=== PATIENT | male | born 1975 | race Two or more races ===

== ENCOUNTER 2019-08-31 00:05 | Inpatient (IN) | payer OTHER ==
[~2019-08-31] VITALS: Ht 182.9 cm; Wt 113.5 kg
[2019-08-31 03:05] LABS: Basophils # (auto) 0 10 ^3/uL (0-0.2); Basophils % (auto) 0.9 % (0.0-2.0); Eosinophils # (auto) 0.1 10 ^3/uL (0-0.8); Eosinophils % (auto) 1.9 % (0.0-7.0); Hematocrit 42.3 % (41.0-53.0); Hemoglobin 15.5 g/dL (13.5-17.5); Lymphocytes # (auto) 2.3 10 ^3/uL (0.4-5.4); Mean Corpuscular Hemoglobin 31.4 pg (28.0-32.0); Mean Corpuscular Hgb Conc. 36.7 g/dL (32.0-36.0); Mean Corpuscular Volume 85.6 fL (80.0-100.0); Monocytes # (auto) 0.7 10 ^3/uL (0-1.3); Monocytes % (auto) 14.4 % (0.0-12.0); Neutrophils % (auto) 38.8 % (37.0-80.0); Nucleated Red Blood Cells % 0.2 %; Platelet Count (auto) 231 10^3/uL (140-450); Red Blood Cells 4.95 10^6/uL (4.5-5.90); Red Cell Distribution Width 12.9 % (11.8-14.3); White Blood Cell 5.1 10^3/uL (4.4-10.8)
[2019-08-31 03:11] LABS: INR 1.05 (0.9-1.15); Partial Thromboplastin Time 29.4 sec (23.64-32.05)
[2019-08-31 03:18] LABS: Anion Gap 8 (5-15); Blood Urea Nitrogen 23 mg/dL (7-18); Calcium 8.4 mg/dL (8.5-10.1); Carbon Dioxide 22 mmol/L (21-32); Chloride 107 mmol/L (98-107); Glucose 88 mg/dL (74-106); Magnesium 2.2 mg/dL (1.6-2.6); Potassium 3.6 mmol/L (3.5-5.1); Sodium 137 mmol/L (136-145)
[2019-08-31 03:20] LABS: BUN/Creatinine Ratio 20.9; GFR African American 94 mL/min; GFR Non-African American 78 mL/min
[2019-08-31 03:25] LABS: Alanine Aminotransferase 65 U/L (16-61); Alkaline Phosphatase 94 U/L (45-117); Aspartate Aminotransferase 30 U/L (15-37); Bilirubin, Total 0.6 mg/dL (0.2-1.0); Total Protein 7.8 g/dL (6.4-8.2)
[2019-08-31] MEDS ORDERED: ALBUTEROL SULF 2.5 MG/0.5ML(0.5%) NEB SOLN NEB ONE (06:00)
[2019-08-31] MEDS ORDERED: NITROGLYCERIN 0.4 MG SL TAB SL PRN (06:00)
[2019-08-31] MEDS ORDERED: MORPHINE SULF INJ 2 MG/ML SYRINGE 1ML IV PRN (06:00)
--- NOTE | 2019-08-31 09:10 | NUR ---
Telemetry admit from ER YLOI BONNER admitted to Telemetry unit after SBAR received. Patient oriented to Tania Kwong, primary RN, unit, room, bed, and unit policies regarding patient care and visiting hours. Patient weighed by bedscale and encouraged to call if they need something. All questions and concerns addressed, patient verbalized understanding. Note: [facility] GUARDS WITH PATIENT
[2019-08-31] MEDS ORDERED: AZITHROMYCIN 250 MG TAB PO SCH (10:00)
[2019-08-31 10:33] VITALS: BP 128/64
[2019-08-31] MEDS: cefTRIAXone 1GM/50ML D5W 50 ML IV SCH (11:28)
[2019-08-31 13:00] VITALS: BP 115/69
--- NOTE | 2019-08-31 13:32 | NUR ---
DR. YEPEZ CALLED AND ORDERS GIVEN TO START COVID-19 SET. ORDERS PLACED.
[2019-08-31] MEDS ORDERED: TEMAZEPAM 15 MG CAP PO PRN (13:45)
[2019-08-31] MEDS ORDERED: ACETAMINOPHEN 500 MG TAB PO PRN (13:45)
[2019-08-31] MEDS ORDERED: HYDROcodone-ACET 5/325MG TAB PO PRN (13:45)
[2019-08-31] MEDS ORDERED: PANTOPRAZOLE 40 MG TAB PO ONE (13:45)
[2019-08-31] MEDS: ALBUTEROL SULF HFA 90MCG INH 200DOSE IN SCH ×2 (16:02→21:53)
[2019-08-31 16:42] VITALS: BP 133/83
--- NOTE | 2019-08-31 19:45 | NUR ---
PATIENT IS AN INMATE WITH TWO GUARDS OUTSIDE ROOM. HE IS HANDCUFFED VIA RIGHT WRIST TO BED. PATIENT IS AO X4 AND STATES NO CURRENT COMPLAINTS OF SHORTNESS OF BREATH ON ROOM AIR. BED IS LOCKED IN LOWEST POSITION WITH SIDE RAILS UP X2. WILL CONTINUE TO MONITOR.
[2019-08-31 21:15] VITALS: BP 118/69
[2019-08-31] MEDS: DOXYCYCLINE 100 MG TAB/CAP PO SCH (21:53)
[2019-08-31] MEDS: PANTOPRAZOLE 40 MG TAB PO SCH (21:53)
--- NOTE | 2019-08-31 21:53 | NUR ---
Respiratory note: SCHEDULED MDI TREATMENT WAS GIVEN BY RN AT 2153.
[2019-09-01 03:54] VITALS: BP 148/69
[2019-09-01 05:00] VITALS: BP 100/74
[2019-09-01] MEDS: ALBUTEROL SULF HFA 90MCG INH 200DOSE IN SCH ×4 (05:42→21:55)
[2019-09-01 06:07] LABS: Basophils # (auto) 0.1 10 ^3/uL (0-0.2); Eosinophils # (auto) 0.1 10 ^3/uL (0-0.8); Eosinophils % (auto) 2.5 % (0.0-7.0); Hematocrit 41.3 % (41.0-53.0); Hemoglobin 14.4 g/dL (13.5-17.5); Lymphocytes # (auto) 2.4 10 ^3/uL (0.4-5.4); Lymphocytes % (auto) 43.5 % (10.0-50.0); Mean Corpuscular Volume 88.6 fL (80.0-100.0); Monocytes # (auto) 0.7 10 ^3/uL (0-1.3); Monocytes % (auto) 12.9 % (0.0-12.0); Neutrophils # (auto) 2.2 10 ^3/uL (1.6-8.6); Neutrophils % (auto) 40.1 % (37.0-80.0); Nucleated Red Blood Cells % 0.1 %; Platelet Count (auto) 197 10^3/uL (140-450); Red Blood Cells 4.66 10^6/uL (4.5-5.90); Red Cell Distribution Width 13.3 % (11.8-14.3); White Blood Cell 5.4 10^3/uL (4.4-10.8)
[2019-09-01 06:32] LABS: Calcium 8.3 mg/dL (8.5-10.1); Potassium 3.8 mmol/L (3.5-5.1)
[2019-09-01 06:37] LABS: Albumin 3.6 g/dL (3.4-5.0); BUN/Creatinine Ratio 21.4; Bilirubin, Total 0.4 mg/dL (0.2-1.0); Total Protein 7.1 g/dL (6.4-8.2)
[2019-09-01] MEDS: ASCORBIC ACID 1,000 MG TAB PO SCH (09:50)
[2019-09-01] MEDS: ZINC SULFATE 220mg CAP or TAB PO SCH (09:50)
[2019-09-01] MEDS: PANTOPRAZOLE 40 MG TAB PO SCH ×2 (09:50→21:53)
[2019-09-01] MEDS: cefTRIAXone 1GM/50ML D5W 50 ML IV SCH (09:50)
[2019-09-01] MEDS: DOXYCYCLINE 100 MG TAB/CAP PO SCH ×2 (09:50→21:53)
[2019-09-01] MEDS: ENOXAPARIN SOD 40 MG/0.4 ML SYRINGE SC SCH (09:51)
[2019-09-01] MEDS: CHOLECALCIFEROL (VITD3) 1,000IU=25mCg TAB PO SCH (09:51)
[2019-09-01 12:30] VITALS: BP 111/73
[2019-09-01 16:36] VITALS: BP 111/66
[2019-09-01] MEDS: LACTULOSE 20Gm/30ML SOLN PO SCH ×3 (17:10→23:58)
--- NOTE | 2019-09-01 19:25 | NUR ---
Opening Shift Note Assumed care of patient, awake and alert, AOx4. No S/S of distress. Some SOB with activity. Patient laying in bed supine w/ HOB at 40 degrees. Patient complains of back pain, given pain medication as prescribed. Instructed on POC and to call for assist PRN, will continue to monitor for changes Q1hr and PRN.
--- NOTE | 2019-09-01 19:25 | NUR ---
Note Correction: Patient did NOT have back pain. Patient was NOT given pain medication. NO pain at this time.
[2019-09-01 22:00] VITALS: BP 124/76
[2019-09-02 05:00] VITALS: BP 112/63
[2019-09-02] MEDS: LACTULOSE 20Gm/30ML SOLN PO SCH ×3 (06:00→18:00)
[2019-09-02 06:49] LABS: CRP High Sensitivity 0.08 mg/dL (< 0.3)
--- NOTE | 2019-09-02 07:30 | NUR ---
Opening Shift Note Assumed care of patient, awake and alert. No S/S of distress/SOB or pain. Instructed on POC and to call for assist PRN, will continue to monitor for changes Q1hr and PRN. Fall precautions in place per safety protocol.
[2019-09-02 08:00] VITALS: BP 111/71
[2019-09-02 09:18] VITALS: BP 111/71
[2019-09-02] MEDS: PANTOPRAZOLE 40 MG TAB PO SCH ×2 (10:38→22:42)
[2019-09-02] MEDS: ASCORBIC ACID 1,000 MG TAB PO SCH (10:38)
[2019-09-02] MEDS: DOXYCYCLINE 100 MG TAB/CAP PO SCH ×2 (10:38→22:42)
[2019-09-02] MEDS: CHOLECALCIFEROL (VITD3) 1,000IU=25mCg TAB PO SCH (10:38)
[2019-09-02] MEDS: cefTRIAXone 1GM/50ML D5W 50 ML IV SCH (10:38)
[2019-09-02] MEDS: ZINC SULFATE 220mg CAP or TAB PO SCH (10:39)
[2019-09-02] MEDS: ENOXAPARIN SOD 40 MG/0.4 ML SYRINGE SC SCH (10:39)
[2019-09-02 10:41] LABS: Hepatitis A Ab IgM Negative
[2019-09-02 10:42] LABS: Hepatitis B Core IgM Negative; Hepatitis B Surface Antigen Negative (Negative)
[2019-09-02 11:00] LABS: Hepatitis C Antibody Positive (Negative)
--- NOTE | 2019-09-02 11:05 | NUR ---
LAB Patient test positive for hepatitis C antibodies, will make MD aware.
--- NOTE | 2019-09-02 11:30 | NUR ---
Reach Truck Operator MD Hercules at bedside, aware of patient status. Per MD Hercules, patient is cleared from his stand point. Will cont to monitor patient.
--- NOTE | 2019-09-02 12:49 | NUR ---
Hospitalist MD Wood at bedside, aware of patient status, including positive hepatitis c antibodies and patient being cleared by pulmonology standpoint. Per MD Anguiano cont to monitor patient. Will cont to monitor patient.
[2019-09-02 13:00] VITALS: BP 113/66
[2019-09-02] MEDS: ALBUTEROL SULF HFA 90MCG INH 200DOSE IN SCH ×2 (14:00→21:22)
[2019-09-02 16:54] VITALS: BP 102/59
--- NOTE | 2019-09-02 19:15 | NUR ---
Opening Shift Note Assumed care of patient, awake and alert. No S/S of distress/SOB or pain. Safety measures in place bed in lowest position, side rails up x2, and call light within reach. Instructed on POC and to call for assist PRN, will continue to monitor for changes Q1hr and PRN.
--- NOTE | 2019-09-02 21:22 | NUR ---
MDI ADMINISTERED WITH HOLDING CHAMBER ATTACHMENT. SPO2 96% ON RA. WILL CONTINUE WITH NEXT SCHEDULED TX.
[2019-09-03 02:22] VITALS: BP 124/68
[2019-09-03 05:51] VITALS: BP 108/60
[2019-09-03] MEDS: LACTULOSE 20Gm/30ML SOLN PO SCH ×4 (06:00→17:59)
[2019-09-03] MEDS: ALBUTEROL SULF HFA 90MCG INH 200DOSE IN SCH ×3 (06:29→22:14)
--- NOTE | 2019-09-03 07:20 | NUR ---
OPENING NOTE ASSUMED CARE OF PATIENT. PATIENT ALERT AND ORIENTED. NO S/S OF SOB/DISTRESS NOTED. BED SET TO LOWEST POSITION/LOCKED, BEDSIDE RAILS UP X2, CALL LIGHT WITHIN REACH. INSTRUCTED PATIENT TO CALL FOR ASSISTANCE. UPDATED ON POC. PATIENT VERBALIZED UNDERSTANDING. WILL CONTINUE TO MONITOR Q 1HR AND PRN.
--- NOTE | 2019-09-03 07:25 | NUR ---
RT NOTE: MDI GIVEN BY RN. ON RA SPO2 97 HR 79 RR 16. WILL CONTINUE TO MONITOR.
[2019-09-03 08:53] VITALS: BP 91/50
[2019-09-03] MEDS: PANTOPRAZOLE 40 MG TAB PO SCH ×2 (09:36→22:13)
[2019-09-03] MEDS: ZINC SULFATE 220mg CAP or TAB PO SCH (09:36)
[2019-09-03] MEDS: DOXYCYCLINE 100 MG TAB/CAP PO SCH ×2 (09:36→22:13)
[2019-09-03] MEDS: cefTRIAXone 1GM/50ML D5W 50 ML IV SCH (09:36)
[2019-09-03] MEDS: ASCORBIC ACID 1,000 MG TAB PO SCH (09:36)
[2019-09-03] MEDS: ENOXAPARIN SOD 40 MG/0.4 ML SYRINGE SC SCH (09:37)
[2019-09-03] MEDS: CHOLECALCIFEROL (VITD3) 1,000IU=25mCg TAB PO SCH (09:37)
[2019-09-03 13:00] VITALS: BP 110/74
--- NOTE | 2019-09-03 14:43 | NUR ---
Est energy needs 4540-1320 kcal (14-18 kcal/kg BW 114.7kg) Est protein needs 81-105g (1-1.3g/kg IBW 81kg) Will yaima kemp. Addendum: 09/03/19 at [address] Amended: Links added.
--- NOTE | 2019-09-03 15:00 | NUR ---
RT NOTE: MDI TX GIVEN WITH SPACER. NO SIGNS OF DISTRESS NOTED AT THIS TIME. ON RA SPO2 97 HR 81 HR 16. WILL CONTINUE TO MONITOR.
[2019-09-03 17:16] VITALS: BP 108/71
[2019-09-03 22:00] VITALS: BP 123/67
--- NOTE | 2019-09-04 | NUR ---
Medication refusal. Patient refusing Lactulose, educated patient on risk and benefits. Patient verbalized understanding; patient refused. Will continue to monitor.
[2019-09-04 03:13] VITALS: BP 123/67
--- NOTE | 2019-09-04 03:55 | NUR ---
LAB Unable to obtain lab blood sample. Notified the technicians. Informed lab technicians will be informed and draw morning labs after change of shift. Will inform chalo ballard Addendum: 09/04/19 at 0553 by GRIS LEE RN RN Correction and clarification of note: Unable to obtain lab blood sample, after two attempts. Notified the technicians. A.M. labs will be drawn after change of shift. Will inform chalo DEL CID.
[2019-09-04 05:00] VITALS: BP 105/73
[2019-09-04] MEDS: LACTULOSE 20Gm/30ML SOLN PO SCH ×4 (05:43→17:40)
[2019-09-04] MEDS: ALBUTEROL SULF HFA 90MCG INH 200DOSE IN SCH ×3 (05:43→22:27)
--- NOTE | 2019-09-04 05:43 | NUR ---
Medication refusal Patient refusing Ventolin inhaler and lactulose administration. Educated patient of risk and benefits, patient verbalized understanding. Patient refused. Will continue to monitor.
--- NOTE | 2019-09-04 06:50 | NUR ---
Respiratory note: PT AWAKE, AND ALERT. LEFT WRIST IS HANDCUFFED TO BED RAIL. NO RESPIRATORY DISTRESS NOTED. SPO2 96% ON RA, HR 61, RR 20, BS CLEAR BILATERALLY. 1 PUFF ALBUTEROL (90MCG) GIVEN BY RN VIA MDI WITH CHAMBER, WITH NO ADVERSE EFFECTS NOTED. PT INFORMED TO PUSH CALL BUTTON IF INCREASED WOB, SOB, OR WHEEZING OCCURS. NO FURTHER RESPIRATORY INTERVENTIONS INDICATED. GUARDS OUTSIDE OF ANTE ROOM. CHARTING COMPLETE FROM OUTSIDE OF PT ROOM.
[2019-09-04 08:46] LABS: Basophils # (auto) 0.1 10 ^3/uL (0-0.2); Eosinophils # (auto) 0.2 10 ^3/uL (0-0.8); Eosinophils % (auto) 3.4 % (0.0-7.0); Hemoglobin 14.5 g/dL (13.5-17.5); Lymphocytes # (auto) 1.7 10 ^3/uL (0.4-5.4); Lymphocytes % (auto) 32.6 % (10.0-50.0); Mean Corpuscular Hemoglobin 31.2 pg (28.0-32.0); Mean Corpuscular Hgb Conc. 35.5 g/dL (32.0-36.0); Mean Corpuscular Volume 87.9 fL (80.0-100.0); Monocytes # (auto) 0.4 10 ^3/uL (0-1.3); Monocytes % (auto) 8.7 % (0.0-12.0); Neutrophils # (auto) 2.8 10 ^3/uL (1.6-8.6); Neutrophils % (auto) 54.3 % (37.0-80.0); Nucleated Red Blood Cells % 0.1 %; Platelet Count (auto) 204 10^3/uL (140-450); Red Blood Cells 4.66 10^6/uL (4.5-5.90); Red Cell Distribution Width 12.8 % (11.8-14.3); White Blood Cell 5.1 10^3/uL (4.4-10.8)
[2019-09-04 09:00] VITALS: BP 108/64
[2019-09-04 09:11] LABS: Calcium 8.5 mg/dL (8.5-10.1)
[2019-09-04 09:17] LABS: Albumin 3.5 g/dL (3.4-5.0); BUN/Creatinine Ratio 21.8; Bilirubin, Total 0.4 mg/dL (0.2-1.0); Total Protein 6.9 g/dL (6.4-8.2)
[2019-09-04] MEDS: DOXYCYCLINE 100 MG TAB/CAP PO SCH ×2 (09:34→22:27)
[2019-09-04] MEDS: cefTRIAXone 1GM/50ML D5W 50 ML IV SCH (09:34)
[2019-09-04] MEDS: CHOLECALCIFEROL (VITD3) 1,000IU=25mCg TAB PO SCH (09:35)
[2019-09-04] MEDS: PANTOPRAZOLE 40 MG TAB PO SCH ×2 (09:35→22:27)
[2019-09-04] MEDS: ZINC SULFATE 220mg CAP or TAB PO SCH (09:35)
[2019-09-04] MEDS: ASCORBIC ACID 1,000 MG TAB PO SCH (09:35)
[2019-09-04] MEDS: ENOXAPARIN SOD 40 MG/0.4 ML SYRINGE SC SCH (09:35)
--- NOTE | 2019-09-04 11:22 | NUR ---
ROUNDING MD BLACKBURN AT BEDSIDE. ALL QUESTIONS AND CONCERNS ADDRESSED AT THIS TIME
--- NOTE | 2019-09-04 12:09 | NUR ---
IV insertion IV access obtained, via clean sterile technique by inserting 20 gauge catheter at RIGHT FOREARM after 1 attempt(s). IV secured properly. No trauma to site. Patient tolerated well.
--- NOTE | 2019-09-04 12:10 | NUR ---
IV removal IV DC'd with clean sterile technique, catheter fully intact. Pressure dressing applied to site. Patient tolerated well.
[2019-09-04 13:00] VITALS: BP 126/75
--- NOTE | 2019-09-04 14:21 | NUR ---
Respiratory note: PT AWAKE, AND ALERT. NO RESPIRATORY DISTRESS NOTED. SPO2 96% ON RA, HR 93, RR 20, BS CLEAR BILATERALLY. 1 PUFF ALBUTEROL (90MCG) GIVEN BY RN VIA MDI WITH CHAMBER, WITH NO ADVERSE EFFECTS NOTED. NO FURTHER RESPIRATORY INTERVENTIONS INDICATED. GUARDS OUTSIDE OF ANTE ROOM. CHARTING COMPLETE FROM OUTSIDE OF PT ROOM. WILL CONTINUE TO MONITOR PT.
[2019-09-04 17:00] VITALS: BP 109/64
[2019-09-04 22:00] VITALS: BP 101/56
--- NOTE | 2019-09-04 22:27 | NUR ---
Respiratory note: PT AWAKE, AND ALERT. NO RESPIRATORY DISTRESS NOTED. SPO2 96% ON RA, HR 48, RR 19, BS CLEAR BILATERALLY. 1 PUFF ALBUTEROL (90MCG) GIVEN BY RN VIA MDI WITH CHAMBER, WITH NO ADVERSE EFFECTS NOTED. NO FURTHER RESPIRATORY INTERVENTIONS INDICATED. GUARDS OUTSIDE OF ANTE ROOM. CHARTING COMPLETE FROM OUTSIDE OF PT ROOM. WILL CONTINUE TO MONITOR PT.
[2019-09-05 05:00] VITALS: BP 93/59
[2019-09-05] MEDS: LACTULOSE 20Gm/30ML SOLN PO SCH ×5 (06:00→23:47)
[2019-09-05] MEDS: ALBUTEROL SULF HFA 90MCG INH 200DOSE IN SCH ×3 (06:34→22:00)
[2019-09-05 09:00] VITALS: BP 111/69
[2019-09-05] MEDS: ZINC SULFATE 220mg CAP or TAB PO SCH (09:39)
[2019-09-05] MEDS: ASCORBIC ACID 1,000 MG TAB PO SCH (09:39)
[2019-09-05] MEDS: cefTRIAXone 1GM/50ML D5W 50 ML IV SCH (09:39)
[2019-09-05] MEDS: DOXYCYCLINE 100 MG TAB/CAP PO SCH (09:39)
[2019-09-05] MEDS: PANTOPRAZOLE 40 MG TAB PO SCH ×2 (09:40→22:00)
[2019-09-05] MEDS: ENOXAPARIN SOD 40 MG/0.4 ML SYRINGE SC SCH (09:40)
[2019-09-05] MEDS: CHOLECALCIFEROL (VITD3) 1,000IU=25mCg TAB PO SCH (09:40)
--- NOTE | 2019-09-05 10:26 | NUR ---
ROUNDING MD BLACKBURN AT BEDSIDE. ALL QUESTIONS AND CONCERNS ADDRESSED AT THIS TIME.
[2019-09-05 12:47] VITALS: BP 109/62
[2019-09-05 16:58] VITALS: BP 112/60
[2019-09-05 22:00] VITALS: BP 108/59
[2019-09-06 05:00] VITALS: BP 89/62
[2019-09-06] MEDS: ALBUTEROL SULF HFA 90MCG INH 200DOSE IN SCH (06:00)
[2019-09-06] MEDS: LACTULOSE 20Gm/30ML SOLN PO SCH (06:00)
[2019-09-06 08:47] VITALS: BP 106/66
[2019-09-06 09:11] VITALS: BP 106/66
[2019-09-06] MEDS: cefTRIAXone 1GM/50ML D5W 50 ML IV SCH (09:15)
[2019-09-06] MEDS: PANTOPRAZOLE 40 MG TAB PO SCH (09:15)
[2019-09-06] MEDS: ASCORBIC ACID 1,000 MG TAB PO SCH (09:15)
[2019-09-06] MEDS: ZINC SULFATE 220mg CAP or TAB PO SCH (09:15)
[2019-09-06] MEDS: CHOLECALCIFEROL (VITD3) 1,000IU=25mCg TAB PO SCH (09:16)
[2019-09-06] MEDS: ENOXAPARIN SOD 40 MG/0.4 ML SYRINGE SC SCH (09:16)
--- NOTE | 2019-09-06 11:40 | NUR ---
Discharge instructions given as ordered. Encourage to follow up with PMD as instructed. All questions and concerns addressed. Patient verbalized understanding. Medication reconciliation form completed and copy given to patient. . IV removed with catheter intact, pressure dressing applied. Patient taken to vehicle via wheelchair with all personal belongings, accompanied by guards. No distress noted at time of departure.
== END 2019-09-06 11:40 | DRG 179 ==
LOC: ER 00:05 → EEVIPCON 00:05 → OVERFLOW 00:06 → EAST 09:37
PROVIDERS: ADMIT Internal Medicine; ATTEND Internal Medicine
DX: U07.1 COVID-19 (principal); E66.9 Obesity, unspecified; G47.00 Insomnia, unspecified; E78.00 Pure hypercholesterolemia, unspecified; Z68.34 Body mass index [BMI] 34.0-34.9, adult; Z87.891 Personal history of nicotine dependence; Z79.899 Other long term (current) drug therapy
CPT/HCPCS: 36415; 36600; 71045; 80053; 80074; 82728; 82805; 83605; 83615; 83735; 84484; 85025; 85379; 85610; 85730; 86141; 87040; 87070; 87804; 87880; 93005; 94640; 96365; G0378; J0696

== ENCOUNTER → 2023-09-16 | Outpatient (CLI) | payer OTHER | END | disposition home or self-care (01) | LOC: CT 08:50 | DX: M17.11 Unilateral primary osteoarthritis, right knee (principal) | CPT/HCPCS: 73700 ==